=== PATIENT | female | born 1980 | race Caucasian/White ===

== ENCOUNTER 2017-05-09 19:27 | Inpatient (IN) | payer OTHER ==
[~2017-05-09] VITALS: Ht 160 cm; Wt 81.0 kg
--- NOTE | 2017-05-09 19:00 | NUR ---
PT ARRIVED ON OB UNIT FROM HOME FOR SCHEDULED LABOR INDUCTION AT TERM.PT. ORIENTED TO ROOM. DENIES DISCOMFORT AT THIS TIME.
[~2017-05-09 19:27] MED LIST: BACTRIM DS1 TAB PO; CEPHALEXIN500 MG OR; CEPHALEXIN500 MG PO; CLONAZEPAM1 MG PO; EQL IBUPROFEN200 MG PO; FAMVIR500 MG PO; LAMOTRIGINE25 M1 PO; LORTAB 5 OR; MACROBID100 MG PO; MEDDOSEPAK PO; OMEPRAZOLE20 M2 PO; OXCARBAZEPINE300 MG PO; PENICILLN VK500 MG OR; PRENATAL1 TA1 PO; TOPAMAX25 MG PO; TYLENOL325 MG PO; ULTRAM50 MG OR; ZOFRAN ODT4 MG PO; ZOFRAN4 MG/TAB PO; ZOLOFT100 MG OR
[2017-05-09 19:45] VITALS: BP 131/82
[2017-05-09 20:00] VITALS: BP 131/82
[2017-05-09 21:13] LABS: URINE BILIRUBIN - DIPSTICK NEGATIVE (NEGATIVE); URINE BLOOD DIPSTICK TRACE-INTACT (NEGATIVE); URINE CLARITY CLEAR; URINE COLOR YELLOW; URINE GLUCOSE - DIPSTICK NEGATIVE (NEGATIVE); URINE KETONE NEGATIVE (NEGATIVE); URINE LEUK ESTERASE NEGATIVE (Negative); URINE NITRITE - DIPSTICK NEGATIVE (Negative); URINE PH 6.5 (4.5-8.0); URINE PROTEIN - DIPSTICK NEGATIVE (NEG-TRACE); URINE UROBILINOGEN - DIPSTICK 0.2 E.U./dL (0.2)
[2017-05-09 21:16] LABS: BARBITURATES NEGATIVE (NEGATIVE); COCAINE NEGATIVE (NEGATIVE); METHADONE NEGATIVE (NEGATIVE); OXCYCODONE NEGATIVE (NEGATIVE); TETRAHYDROCANNABIONOL NEGATIVE (NEGATIVE); TRICYLIC ANTIDEPRESSANTS NEGATIVE (NEGATIVE)
[2017-05-09 21:22] LABS: HEMATOCRIT 27.6 % (37.0-47.0); HEMOGLOBIN 9.1 g/dl (12.0-16.0); IMMATURE GRANULOCYTES 0.5 % (0.0-1.0); MEAN CELL VOLUME 96.5 fL CALC (80.0-100.0); MEAN CORPUSCULAR HGB 31.8 pG CALC (26.0-32.0); NEUT# 7.34 thou/uL (2.00-7.15); RED BLOOD COUNT 2.86 mill/uL (4.20-5.60); RED CELL DISTRI WIDTH 13.1 % (11.5-15.5)
[2017-05-09 21:27] VITALS: BP 126/80
--- NOTE | 2017-05-09 21:27 | NUR ---
VITAL SIGNS WITHIN NORMAL LIMITS. FHR 140 WITH MODERATE VARIABILITY AND NO DECELERATIONS. FIRST DOSE OF PO CYTOTEC ADMINISTERED.
[2017-05-09 21:30] VITALS: BP 126/80
[2017-05-09 21:34] LABS: ALBUMIN 3.2 g/dL (3.2-5.0); ALKALINE PHOSPHATASE 155 u/l (38-126); ANION GAP 13 (6-22 (CALC)); BILIRUBIN, TOTAL 0.5 mg/dL (0.0-1.4); BUN 9 mg/dL (7-17); BUN/CREATININE RATIO 18 (12-20 (CALC)); CALCIUM 8.9 mg/dL (8.4-10.2); CARBON DIOXIDE 19 mmol/l (22-30); CHLORIDE 108 mmol/l (95-108); CREATININE 0.5 mg/dL (0.5-1.0); GFR > 60 ML/MIN (>=60 (CALC)); GFR FOR AFR.AMER. > 60 ML/MIN (>=60 (CALC)); GLUCOSE 113 mg/dL (65-105); POTASSIUM 3.6 mmol/l (3.5-5.1); SGOT/AST 15 u/l (14-36); SGPT/ALT 18 u/l (9-52); SODIUM 137 mmol/l (137-146); TOTAL PROTEIN 6.3 g/dL (6.3-8.2)
[2017-05-09 22:30] VITALS: BP 120/70
[2017-05-09 23:30] VITALS: BP 126/80
[2017-05-10] VITALS (38 sets, daily range): BP systolic 100–139; BP diastolic 47–85
--- NOTE | 2017-05-10 00:15 | NUR ---
PT REQUESTED SEDATIVE FOR SLEEP. VISTERIL 25MG PO GIVEN PRESCRIBED.
--- NOTE | 2017-05-10 06:09 | NUR ---
PT. SLEPT ON AND OFF THROUGH THE NIGHT AFTER VISTARIL PO WAS GIVEN. NO C/O PAIN, MILD IRREGULAR CONTRACTIONS NOTED BUT WERE NOT PAINFUL TO PT.CERVIX UNCHANGE, SOFT, STRETCHY 3CM AND VERTEX AT -2 STATION.
--- NOTE | 2017-05-10 07:19 | NUR ---
REPORT RECEIVED FROM DEVAUGHN CHEUNG. PATIENTG ASLEEP IN BED. S/O ASLEEP AT BEDSIDE. WILL CONTINUE TO MONITOR.
--- NOTE | 2017-05-10 07:45 | NUR ---
ON UNIT. PATIENT STILL SLEEPING. NO CONCERNS AT THIS TIME.
--- NOTE | 2017-05-10 12:10 | NUR ---
induction of labor commenced as ordered. will continue to monitor patient.
--- NOTE | 2017-05-10 12:45 | NUR ---
contraction palpated and toco readjusted. will continue to monitor.
--- NOTE | 2017-05-10 13:45 | NUR ---
tolerating contractions well. s/o at bedside giving support.
--- NOTE | 2017-05-10 15:59 | NUR ---
UP TO RECLINER. S/O AT BEDSIDE. NO CONCERNS. DECLINES PAIN MEDICATION AT THIS TIME.
--- NOTE | 2017-05-10 16:33 | NUR ---
sve done to assess progress and before medicating for pain as requested by patient. no change from last. will medicate per orders
--- NOTE | 2017-05-10 16:40 | NUR ---
medicated for pain as requested. effects and side effects dicussed prior to.
--- NOTE | 2017-05-10 16:54 | NUR ---
EXPRESSES PAIN RELIEF. S/O AT BEDSIDE.
--- NOTE | 2017-05-10 17:40 | NUR ---
assited to using the birthing ball. s/o at her side for support. patient denies drowsiness or dizziness. will continue to monitor.
--- NOTE | 2017-05-10 19:19 | NUR ---
resting comfortable in bed. end of shift report given to alexia tang.
--- NOTE | 2017-05-10 19:30 | NUR ---
PT RESTING QUIETLY IN BED. INTRODUCED SELF TO PT AND HEAD TO TOE ASSESSMENT COMPLETED. ASSESSMENT WNL EXCEPT DRY COUGH NOTED, LUNGS CLEAR BILATERALLY, NO PEDAL EDEMA. PT RATING CONTRACTIONS 8/10 IN LOWER BACK AND ABDOMEN, BUT PT ABLE TO TALK THROUGH CONTRACTIONS. PT AWARE OF DR. LYNCH PLAN TO RUPTURE MEMBRANES AROUND 1999. ENCOURAGED TO CONTINUE TO MOVE TO HELP FACILITATE LABOR PROGRESS, OR AT LEAST CHANGE SIDE IN BED. PT VERBALIZED UNDERSTANDING AND STATES WILL CHANGE POSITION ONCE DR. LYNCH RUPTURES MEMBRANES. SIGNIFICANT OTHER AT BEDSIDE. PT DENIES ANY OTHER NEEDS AT THIS TIME. ENCOURAGED PT TO CALL WITH ANY NEEDS OR CONCERNS.
--- NOTE | 2017-05-10 20:30 | NUR ---
DR. LYNCH AT BEDSIDE. AROM CLEAR FLUID AT 1999. CERVICAL EXAM PER DR. LYNCH. KATHY CARE PROVIDED. PT C/O PAIN- MEDICATED ORDERED AT 2010. PT TURNED TO RIGHT SIDE WITH PEANUT BALL BTW LEGS AT 2029. DR. LYNCH AT BEDSIDE REQUESTING PITOCIN BE DECREASED TO 8 SYLWIA/MIN. SIGNIFICANT OTHER AT BEDISE AND SUPPORTIVE. PT BREATHING THROUGH CONTRACTIONS. ENCOURAGED PT TO CALL WITH ANY NEEDS OR CONCERNS.
--- NOTE | 2017-05-10 21:35 | NUR ---
PT CALLED OUT IN TEARS STATING THAT SHE WOULD LIKE AN EPIDURAL AND CAN'T TOLERATE THE PAIN ANY MORE. SVE PERFORMED /-2. DR. LYNCH CALLED AND NOTIFIED THAT PT WAS REQUESTING AN EPIDURAL. DR. LYNCH STATES WILL BE IN HOSPITAL IN 30 MINUTES. INSTRUCTIONAL ASSISTANT CALLED AT 2115 TO NOTIFY ANESTHESIA THAT PT WOULD LIKE EPIDURAL AND DR. LYNCH WILL BE HERE IN 30 MIN. PT OOB TO BR TO AMBULATE TO ROOM ONE. PT ARRIVED IN ROOM 1 AT 2134. PT STATES NEEDS TO USE RESTROOM. PT ABULATE TO BATHROOM TO VOID. PT VOIDED 300 ML IN URINAL HAT. LR BOLUS FOR EPIDURAL STARTED AT 2134 AT 999 ML/HR. SIGNIFICANT OTHER AT BEDSIDE AND SUPPORTIVE.
--- NOTE | 2017-05-10 22:42 | NUR ---
DR. LYNCH AND Geri HILL CRNA AT BEDSIDE AT 2146. 2150- BP 136/85, HR 76, O2 99% 97.9 F TEMP, RR 18, FHT 125 2152- EPIDURAL POSITIONING 2155- TIME OUT WITH VERBAL VERIFICATION WITH Geri HILL CRNA, RADHA, RN & PT. BP 156/76, HR 88, O2 99%, FHT UNABLE TO TRACE D/T MATERNAL POSTION 2201- EPIDURAL CATH PLACED, O2 96%, HR 72, FHT UNABLE TO TRACE D/T EPIDURAL POSITIONING 2202- TEST DOSE, HR 87, O2 96%, FHT UNABLE TO TRACE D/T EPIDURAL POSITIONING 2203- LOADING BOLUS DOSE, BP 127/86, HR 100, O2 97%, FHT UNABLE TO TRACE D/T EPIDURAL POSITIONING, RR 18 2205- US ADJUSTED, FHT 120 2209- SEMI-DE [place] CRUZ POSITION, DERMATONES T10, BP 118/75, HR 87, O2 97%, RR 18, FHT TRACING MHR, US ADJUSTED FHT 120 2214- BP 105/53, HR 80, RR 16, O2 98%, FHT 120 WITH VD NOTED WITH CONTRACTION 2217- BP 97/50, HR 82, RR 16, O2 98%, FHT 120 WITH VD NOTED WITH CONTRACTION. LEFT TILT, US ADJUSTED. 2220- BP 92/55, HR 68, RR 16, O2 99%, DERMATONES T10. PT RATES PAIN 6/10. FHT 120 WITH VD NOTED WITH CONTRACTIONS. IVF BOLUS CONTINUED FROM EPIDURAL START. Geri HILL CRNA ADMINISTERING EPHEDRINE IV AND IM. PT NAUSEOUS AND SPITTING MUCOUS IN EMESIS BAG. 2222- SVE 5-6/80/-2 BY THIS RN. 2227- DR. LYNCH AT BEDSIDE. NOTIFIED OF VARIABLE DECELS WITH CONTRACTIONS AND SVE. NO NEW ORDERS RECEIVED. FHT 125, NO DECELERATION NOTED WITH INVERTED CONTRACTION. TOCO ADJUSTED. BP 144/79, HR 64, RR 16, O2 98% 2239- SCHWARTZ CATHETER PLACED, LEG STRAP APPLIED. 2241- PT TURNED TO RIGHT SIDE WITH PEANUT BALL BTW LEGS. US AND TOCO ADJUSTED. PT DENIES ANY PAIN. SIGNIFICANT OTHER AT BEDSIDE AND SUPPORTIVE. PT NODDING OFF TO SLEEP. ENCOURAGED PT TO CALL WITH NEEDS.
--- NOTE | 2017-05-10 23:10 | NUR ---
DR. LYNCH AT BEDSIDE. SVE -/0. PT DENIES ANY PAIN. SIGNIFICANT OTHER AT BEDSIDE. ENCOURAGED PT TO CALL WITH ANY NEEDS OR CONCERNS.
--- NOTE | 2017-05-10 23:20 | NUR ---
PT REPOSITIONED INTO THRONES. US AND TOCO ADJUSTED. SIGNIFICANT OTHER AT BEDSIDE AND SUPPORTIVE. PT DENIES ANY NEEDS AT THIS TIME. ENCOURAGED PT TO CALL WITH ANY NEEDS OR CONCERNS.
--- NOTE | 2017-05-10 23:48 | NUR ---
DR. LYNCH AT BEDSIDE. SVE /0. PT SEMI-FOWLERS INSTRUCTED ON PUSHING. PT DEMONSTRATED UNDERSTANDING. SIGNIFICANT OTHER AT BEDSIDE. RN AND MD AT BEDSIDE MONITORING CONTINUOUSLY.
[2017-05-11] VITALS (13 sets, daily range): BP systolic 108–149; BP diastolic 57–80
--- NOTE | 2017-05-11 00:54 | NUR ---
OF VIABLE FEMALE AT 0010 OVER AN INTACT PERINEUM. PLACED SKIN TO SKIN WITH MOTHER IN STABLE CONDITION. DR. LYNCH ORDERED PITOCIN STARTED AT 999 ML/HR WHILE AWAITING PLACENTA. PLACENTA DELIVERED AT 0016. KATHY CARE PROVIDED, PARTIAL LINEN CHANGED. FUNDUS FIRM AT 1/U, SMALL RUBRA LOCHIA NOTED. 0020 LR STOPPED WITH VOLUME INFUSED AT 219 ML. 0035 EPIDURAL CATHETER REMOVED, TIP INTACT. 0046 20 UNITS OF PITOCIN IN 1000 ML LR HUND AT 150 ML/HR. 0054 MEDICATED PT WITH MOTRIN 600 AND DERMOPLAST FOR PAIN 2/10 UTERINE CRAMPING. PT DENIES ANY NEEDS. ENCOURAGED PT TO CALL WITH ANY NEEDS OR CONCERNS. WILL CONTINUE TO MONITOR.
--- NOTE | 2017-05-11 02:15 | NUR ---
OOB TO BR TO VOID. LEFT LEG A LITTLE HEAVY AND TINGLING PER PT. PT ABLE TO AMBULATE TO BATHROOM WITH ASSISTANCE. PT VOIDED 900 ML. EDUCATED PT ON KATHY CARE. PT DEMONSTRATED UNDERSTANDING. MESH UNDERWEAR PROVIDED. GOWN CHANGED. PT TO WHEELCHAIR FOR TRANSFER TO ROOM 205 IN STABLE CONDITION. SIGNIFICANT OTHER AT BEDSIDE. PROVIDED TO PT IN BED. ENCOURAGED PT TO CALL WITH NEEDS.
--- NOTE | 2017-05-11 03:42 | NUR ---
PT CALLED OUT WITH C/O PAIN. MOTRIN NOT DUE FOR [address] LYNCH NOTIFIED AT 0325, ORDERS RECEIVED. MEDICATED PT ORDERED. SANDWICH, FELIPE CRACKERS AND JUICE PROVIDED PER PT REQUEST. ICE WATER PROVIDED. PT DENIES ANY OTHER NEEDS. ENCOURAGED PT TO CALL WITH ANY NEEDS OR CONCERNS.
--- NOTE | 2017-05-11 05:00 | NUR ---
PT OOB TO BR TO VOID. PT STATES RELIEF FROM PAIN MEDICATION. PT AMBULATED WITHOUT ASSISTANCE. RN AT BEDSIDE MONITORING. PT VOIDED 500 ML. KATHY CARE PERFORMED W/O NEEDING REINFORCEMENT. INFORMED PT THAT SHE IS ABLE TO GET OOB W/O ASSIST NOW THAT LEGS ARE STABLE AFTER EPIDURAL. [id number] PT TO GET OOB TO VOID EVERY 2-3 HOURS TO AVOID EXCESSIVE BLEEDING AND TO NOTIFIED IF PASSES A CLOT BIGGER THAN GOLF BALL OR SATURATES A PAD IN AN HOUR- VERBALIZED UNDERSTANDING. EDUCATED PT THAT PEDITRICIANS RECOMMEND ONLY BREAST FOR THE FIRST 6 MONTHS AND TO AVOID SUPPLEMENTATION UNLESS PEDIATRICIANS RECOMMENDED IT, NO ARTIFICIAL NIPPLES FOR FIRST MONTH D/T NIPPLE CONFUSION, INFANT STOMACH SIZE AND SUPPLY/DEMAND AND SKIN TO SKIN- VERBALIZED UNDERSTANDING. EDUCATION BOOKLET PROVIDED TO REINFORCE INFORMATION. INDUSTRIAL LOCOMOTIVE OPERATOR NOTIFIED US THAT THE OR SCHEDULED IS FULL FOR MONDAY. THEREFORE, I INFORMED PT THAT DR. LYNCH MAY WANT TO PERFORM BILATERAL TUBAL LIGATION LATER TODAY SO TO NOT HAVE ANYTHING ELSE TO EAT OR DRINK AFTER 0500. PT VERBALIZED UNDERSTANDING. SIGNIFICANT OTHER AT BEDSIDE. PT DENIES ANY OTHER NEEDS. ENCOURAGED PT TO CALL WITH NEEDS.
--- NOTE | 2017-05-11 07:17 | NUR ---
BEDSIDE REPORT RECEIVED FROM Lily MARTINEZ RN. PT AWAKE, FATHER SLEEPING IN RECLINER AT BEDSIDE. PT NPO SINCE 0500, SCHEDULE OF TUBAL IS PENDING.
--- NOTE | 2017-05-11 07:42 | NUR ---
[place] IS REQUESTING MED FOR CRAMPING, MOTRIN GIVEN, SHE REQUESTS TO NOT BE DISTURBED TO SLEEP. PARTNER SLEEPING IN RECLINER. SHE REMAINS NPO. SHE WILL LET ME KNOW IF SHE DOES NOT GET RELIEF WITH THE MOTRIN. IV SITE HEALTHY. PITOCIN COMPLETE. IV RL UP.
--- NOTE | 2017-05-11 09:10 | NUR ---
IV SALINE LOCKED, FLUIDS D/C'D. TUBAL SCHEDULED FOR TOMORROW 829
--- NOTE | 2017-05-11 09:45 | NUR ---
PT RESTING WITHOUT COMPLAINT. ASKING ABOUT DISCHARGE TODAY BUT TUBAL SCHED FOR AM. SMOKING CESSATION TEACHING, PT STATES THAT SHE IS NOT NEEDING NICOTINE PATCH AND "DOING FINE" TUBAL WRITTEN CONSENT SIGNED. DR. LYNCH WAS IN AND DISCUSSED PER PT.
--- NOTE | 2017-05-11 12:11 | NUR ---
RHOGAM GIVEN IN IV PER ORDER
--- NOTE | 2017-05-11 16:42 | NUR ---
PT REQUESTING TO LEAVE UNIT FOR BRIEF TIME. PT SIGNED SMOKING RELEASE OF LIABILITY, PT DECLINES NICOTINE PATCH AND DENIES ANY OTHER CONCERNS.
--- NOTE | 2017-05-11 16:47 | NUR ---
HEALTHY FAMILIES WORKER IN TALKING WITH [place]. B/F AND VISITOR HAVE LEFT THE UNIT
--- NOTE | 2017-05-11 18:40 | NUR ---
REVIEW AND DISCUSSION OF PP WRITTEN INSTRUCTIONS DONE WITH BOTH PARENTS
--- NOTE | 2017-05-11 19:23 | NUR ---
REPORT TO BERNY MARTINEZ RN BEDSIDE WITH BOTH PARENTS
--- NOTE | 2017-05-11 19:44 | NUR ---
ASSESSMENT COMPLETED CHARTED. PT C/O UTERINE CRAMPING- WILL MEDICATE PER ORDERS. IV FLUSHED BY LEAKING AT SITE. D/C'D IV, CATH INTACT, DRESSING APPLIED. WILL RESTART IN AM WITH LABS FOR TUBAL IN AM. PT REQUESTING TO LEAVE UNIT. TO NURSERY. PT AMBULATE WITH SIGNIFICANT OTHER OFF UNIT. NO NEEDS EXPRESSED.
--- NOTE | 2017-05-11 20:06 | NUR ---
PT AND SIGNIFICANT OTHER BACK FROM DOWN STAIRS. INFANT BROUGHT TO ROOM. PT HAS SIGNIFICANT OTHER MOTHER AND SISTERS COMING TO VISIT. REVIEWED DISCHARGE TEACHING VERBALLY WITH PT- VERBALIZED UNDERSTANDING AND SIGNED DISCHARGE PAPERS. WHEN VISITORS ARRIVED I EXITED THE ROOM. ENCOURAGED PT TO CALL WITH ANY NEEDS OR CONCERNS.
--- NOTE | 2017-05-11 23:46 | NUR ---
PT STATES RELIEF FROM PAIN MEDICATION. BROUGHT IN COT FOR SIGNIFICANT OTHER. PT PROVIDED FELIPE CRACKERS AND MILK FOR FINAL SNACK BEFORE NPO STATUS AT MIDNIGHT. PT IS AWARE NOTHING TO EAT OR DRINK AFTER MIDNIGHT. PT STATES WILL WATCH [employer]S TONIGHT. PT DENIES ANY OTHER NEEDS AT THIS TIME. ENCOURAGED PT TO CALL WITH ANY NEEDS OR CONCERNS.
[2017-05-12] VITALS (10 sets, daily range): BP systolic 116–128; BP diastolic 60–82
--- NOTE | 2017-05-12 03:01 | NUR ---
PT CALLED OUT WITH CONCERNS ON . INFANT EDCAUTION PROVIDED, SEE CHART. PT C/O PAIN- MEDICATED ORDERED. PT TOOK MEDICATION WITH ONLY A SIP OF WATER IS NPO FOR BILATERAL TUBAL LIGATION THIS AM. SIGNIFICANT OTHER AT BEDSIDE. ENCOURAGED PT TO CALL WITH ANY NEEDS.
[2017-05-12 06:54] LABS: HEMATOCRIT 24.8 % (37.0-47.0); HEMOGLOBIN 8.1 g/dl (12.0-16.0); IMMATURE GRANULOCYTES 0.5 % (0.0-1.0); MEAN CELL VOLUME 96.9 fL CALC (80.0-100.0); MEAN CORPUSCULAR HGB 31.6 pG CALC (26.0-32.0); MEAN CORPUSCULAR HGB CONC 32.7 g/L CALC (32.0-36.0); NEUT# 7.22 thou/uL (2.00-7.15); RED BLOOD COUNT 2.56 mill/uL (4.20-5.60); RED CELL DISTRI WIDTH 13.3 % (11.5-15.5)
--- NOTE | 2017-05-12 07:15 | NUR ---
PT AMBULATING TO BATHROOM TO VOID.
--- NOTE | 2017-05-12 07:30 | NUR ---
PT PREPARED FOR OR, REMOVED JEWELRY, TO OR VIA STRETCHER WITH OR NURSE.
--- NOTE | 2017-05-12 10:10 | NUR ---
PT TO ROOM 205 VIA STRETCHER WITH OR NURSE.
--- NOTE | 2017-05-12 10:21 | NUR ---
PT MOVED TO BED FROM STRETCHER WITH ASSISTANCE. SETTLED IN BED,
--- NOTE | 2017-05-12 10:23 | NUR ---
OOB TO VOID, AMBULATED WITH OUT ASSISTANCE, BACK TO BED.
--- NOTE | 2017-05-12 11:05 | NUR ---
MEDICATED FOR PAIN WITH LORTAB, PT GIVEN LANSINOH CREAM FOR NIPPLES PER REQUEST.
--- NOTE | 2017-05-12 11:25 | NUR ---
[facility] START CARDIAC TECH HAS BEEN IN TO SEE PT, [facility] CARDIAC TECH IN TO SEE PT AT THIS TIME.
--- NOTE | 2017-05-12 12:25 | NUR ---
PT REUQESTS TO GO DOWNSTAIRS TO GET COFFEE IN WC WITH S/O. PT ADVISED NOT TO. PT STATES SHE WANTS TO GO GET COFFEE STATES SHE WILL NOT SMOKE. PT AWARE THIS IS AT HER OWN RISK. PT TO WITH S.O.
--- NOTE | 2017-05-12 12:45 | NUR ---
PT RETURNS TO UNIT IN WC WITH S/O.
--- NOTE | 2017-05-12 14:24 | NUR ---
MEDICATED FOR PAIN WITH MOTRIN. PT SITS IN BED EATING ICE.
--- NOTE | 2017-05-12 14:25 | NUR ---
Patient resting in bed with head of bed at 45 degree angle; upper side rails up; and infant girl being held by the baby's dad. Positive bonding observed between parents and their baby girl. Patient states that she is uncomfortable with a pain scale of 7/10; however, she did just receive Motrin earlier and next dose of Lortab not due until 4 p.m. Encouraged mom that if she wants to shower, we can cover her incisional dressing, and she may shower. Dressing is clean, dry, and occlusive; no drainage. She states that she wants to wait until after she receives the Lortab. Plan is for Discharge later today; pending upon the decision of the Scoreboard Operator to discharge the baby. [facility]'s Social Economist was notified (per patient request), to prepare patient's prescriptions; and the tech arrived shortly thereafter. Continue to monitor both mom and baby.
[2017-05-12] MEDS ORDERED: FERROUS SULF325 M2 PO (17:49)
[2017-05-12] MEDS ORDERED: LORTAB 5/3255 MG PO (17:50)
--- NOTE | 2017-05-12 18:00 | NUR ---
Patient has her spouse and a friend here to help with her Discharge Home. The patient identified her baby as the correct baby girl, ID bracelets matched, and the infant's ID bracelet was removed from her ankle and taped to the footprint sheet. Mom signed the footprint sheet. The infant was fitted snuggly and safely in the infant car seat. Mom received her prescriptions from [facility], copies of her Discharge Papers, instructions to return to her OB-PIPING MANAGER doctor next week, as well as, to take her baby to [facility] on Monday for follow-up care. Escorted via wheelchair out to their car; both mom and infant in good/stable condition, and Discharged at 1807.
[2017-05-12] MEDS ORDERED: NORCO1 TA1 PO (18:11)
[2017-05-12] MEDS ORDERED: IBUPROFEN600 MG PO (18:14)
== END 2017-05-12 18:07 | disposition home or self-care (01) | DRG 767 ==
LOC: OB 19:27
PROC: 3E0P3VZ Introduction of Hormone into Female Reproductive, Percutaneous Approach (ICD-10-PCS; 2017-05-10)
PROC: 10907ZC Drainage of Amniotic Fluid, Therapeutic from Products of Conception, Via Natural or Artificial Opening (ICD-10-PCS; 2017-05-10)
PROC: 10E0XZZ Delivery of Products of Conception, External Approach (ICD-10-PCS; principal; 2017-05-11)
PROC: 3E0234Z Introduction of Serum, Toxoid and Vaccine into Muscle, Percutaneous Approach (ICD-10-PCS; 2017-05-11)
PROC: 0UB70ZZ Excision of Bilateral Fallopian Tubes, Open Approach (ICD-10-PCS; 2017-05-12)
DX: O99.334 Smoking (tobacco) complicating childbirth (principal); D50.9 Iron deficiency anemia, unspecified; O26.893 Other specified pregnancy related conditions, third trimester; F17.210 Nicotine dependence, cigarettes, uncomplicated; O99.02 Anemia complicating childbirth; O69.81X0 Labor and delivery complicated by cord around neck, without compression, not applicable or unspecified; Z37.0 Single live birth; Z67.41 Type O blood, Rh negative; Z3A.39 39 weeks gestation of pregnancy
CPT/HCPCS: J2710; J2788